=== PATIENT | male | born 1975 | race Caucasian/White ===

== ENCOUNTER 2023-12-29 08:04 | Emergency (ER) | payer OTHER, SELFPAY ==
--- NOTE | 2023-12-29 08:10 | ED.URI ---
HPI - URI/Sore Throat General Chief Complaint: Upper Respiratory Infection Stated Complaint: Sore Throat/Headache Source: patient, RN notes reviewed and old records reviewed Mode of arrival: ambulatory Limitations: no limitations History of Present Illness HPI Narrative: 48-year-old male who presents to [facility] with complaints of sore throat and headache since Thursday. Patient states he actually had migraine yesterday and did sumatriptan which did help his headache. Patient reports that he has a sore throat mainly on the left side of his throat with tenderness to the left side of his neck with some swelling of his gland noted. Patient admits to some sinus allergies and congestion with intermittent loss of voice, has been taking Claritin daily. Patient reports no fevers chills or sweats, denies any cough. MD elicited complaint: sore throat, nasal congestion and other (headache) Onset (ago): day(s) (5) Consistency: progressively worsening Severity: moderate Able to tolerate fluids by mouth: Yes Treatments prior to arrival: other (Claritin and migraine medication) Related Data Home Medications Medication Instructions Recorded Confirmed buspirone 15 mg tablet mg 12/29/23 clonazepam 2 mg tablet mg 12/29/23 esomeprazole magnesium 40 mg mg 12/29/23 capsule,delayed release lisinopril 20 mg tablet mg 12/29/23 loratadine 10 mg tablet mg 12/29/23 ondansetron HCl 4 mg tablet mg 12/29/23 sumatriptan succinate 50 mg tablet mg PO 12/29/23 Allergies Allergy/AdvReac Type Severity Reaction Status Date / Time No Known Allergies Allergy Unverified 05/26/14 14:19 Review of Systems Review of Systems: CONSTITUTIONAL: Reports malaise,no chills, sweats, or fever. EYES: Denies visual changes, redness, or discharge. ENT: Reports no rhinorrhea,states some congestion, sinus pain, no otalgia and positive for sore throat. CARDIOVASCULAR: Denies chest pain, palpitations, or edema. RESPIRATORY: Reports no cough.? Denies dyspnea. GASTROINTESTINAL: Denies abdominal pain, nausea, vomiting, diarrhea SKIN: Denies rash or itching. MUSCULOSKELETAL: Denies myalgia. NEUROLOGIC: Reports headache. All systems reviewed & are unremarkable except as noted in HPI and below PMFSH Past Medical History Medical History (Updated 04/23/24 @ 13:44 by Latonya Taylor NP) GERD (gastroesophageal reflux disease) Hypertension Migraine Social History Social History (Updated 12/29/23 @ 08:29 by Latonya Taylor NP) Smoking status: Former smoker Alcohol intake: former Alcohol use details: no alcohol for 2 months Substance use type: does not use Gender identity (if verbalized by the patient): Male Comments At time of signature, agree with nursing past medical, surgical, social and family history. There is no relevant family history pertinent to the presenting complaint Exam Narrative: GENERAL: Well-appearing, well-nourished, and in no acute distress. HEAD: Normocephalic EYES: PERRLA, conjunctivae clear ENT: Nares clear, turbinates edematous and erythematous, clear discharge. Mucous membranes moist. TM pearly gruber with dull light reflex bilaterally; no tragal tenderness. Oropharynx erythematous without lesions.Left Tonsil red and enlarged and without exudate, no drooling,positive for intermittent hoarseness, no trismus, uvula midline. NECK: Supple. Left lymphadenopathy CHEST: Clear to auscultation, breath sounds equal. No wheezing, rhonchi, rales, or stridor. No respiratory distress, speaks in full sentences.no cough noted,SAO2 100% on room air HEART: Regular rate and rhythm. No murmur heard. SKIN: Warm, dry, no rash. NEURO: Alert and oriented x3. PSYCH: Normal mood and affect Course Course Emergency Course: Patient is aware of diagnosis, understands and agrees to treatment plan.? Anticipatory guidance given.? Patient agrees to follow-up as directed and is aware of reasons to seek care at the
[2023-12-29 08:16] VITALS: BP 129/81; PULSE 85; RESP 14; TEMP 36.7; O2SAT 100
== END 2023-12-29 08:47 | disposition home or self-care (01) ==
PROVIDERS: Emergency Provider Registered Nurse
DX: J03.90 Acute tonsillitis, unspecified (principal); K21.9 Gastro-esophageal reflux disease without esophagitis; I10 Essential (primary) hypertension; Z87.891 Personal history of nicotine dependence
CPT/HCPCS: 87081; 87880; 99203; 99204; G0463

== ENCOUNTER 2025-05-31 08:10 | Emergency (ER) | payer OTHER, SELFPAY ==
[2025-05-31 08:17] VITALS: BP 108/71; PULSE 67; RESP 16; TEMP 36.8; O2SAT 100
--- OUTSIDE RECORDS SUMMARY | 2025-05-31 08:19 | XMS_ITS | Clinical Summary ---
Author Organization [facility] Address [address] [place] [address] Phone Care Team Providers Care Manager Print Name Role Phone Provider, None Primary Care Provider Unavailabl e Allergies No known active allergies Medications clonazePAM (KLONOPIN) 2 MG Tablet Take 2 mg by mouth 2 times daily. Active gabapentin (NEURONTIN) 300 MG Capsule Take 300 mg by mouth 3 times daily. Active busPIRone (BUSPAR) 15 MG Tablet Take 15 mg by mouth 3 times daily. Active Esomeprazole Magnesium (NEXIUM PO) Take 40 mg by mouth. Active Cholecalciferol (VITAMIN D3) 34952 units TabletIndicatio ns:Vitamin D deficiency Take 1 Tab by mouth once a week. 12 Tab 02/18/2019 Active prochlorperazin e (COMPAZINE) 5 MG Tablet Take 1-2 Tablets by mouth every 6 hours as needed for Nausea - 1st line. 10 Tablet 08/17/2024 Active Active Problems No known active problems Family History Medical History Relation Name Comments Diabetes Father Hypertension Father No Known Problems Mother Relation Name Status Comments Father Alive Mother Alive Social History Tobacco Use Types Packs/Day Years Used Date Smoking Tobacco: Former Smokeless Tobacco: Never Alcohol Use Standard Drinks/Week Comments Yes 0 (1 standard drink = 0.6 oz pur e alcohol) occasional PHQ-2 Answer Date Recorded PHQ-2 Score 0 05/20/2019 Sex and Gender Information Value Date Recorded Sex Assigned at Not on file Legal Sex Male 8:59 AM CDT Gender Identity Not on file Sexual Orientation Not on file Last Filed Vital Signs Vital Sign Reading Time Taken Comments Blood Pressure 100/67 08/17/2024 8:03 AM CLERICAL METHODS ANALYST Pulse 74 08/17/2024 8:03 AM CLERICAL METHODS ANALYST Temperature 35.9 C (96.6 F) 08/17/2024 6:31 AM CLERICAL METHODS ANALYST Respiratory Rate 14 08/17/2024 6:31 AM CLERICAL METHODS ANALYST Oxygen Saturation 96% 08/17/2024 8:03 AM CLERICAL METHODS ANALYST Inhaled Oxygen Concentration - - Weight 90.7 kg (200 lb) 08/17/2024 6:31 AM CLERICAL METHODS ANALYST Height 193 cm (6' 4) 08/17/2024 6:31 AM CLERICAL METHODS ANALYST Body Mass Index 24.34 08/17/2024 6:31 AM CLERICAL METHODS ANALYST Plan of Treatment Health Maintenance Due Date Last Done Comments Hepatitis C Virus (HCV) Screening 1977 TdaP Immunization 1977 Hepatitis B Immunization (1 of 3 - 19+ 3-dose series) 1996 Cologuard 2022 Colonoscopy 2022 Colorectal Cancer Screening 2022 Immunochemical Fecal Occult Blood 2022 Influenza Immunization (#1) 2025 SARS-COV-2 Immunization ( season) 2025 Respiratory Syncytial Virus (RSV) Immunization (Adult) (1 - 1-dose 75+ series) 2052 Human Papillomavirus (HPV) Immunization Aged Out No longer eligible b ased on patient's age to complete this topic Meningococcal Immunization (ACWY) Aged Out No longer eligible based on patient's age to complete this topic Pneumococcal Immunization Combined Aged Out No longer eligible based on patient's age to complete this topic Rotavirus Immunization Aged Out No lo nger eligible based on patient's age to complete this topic Insurance [employer] Care Teams Manager Print Relationship Specialty Start Date End Date Provider, None [place] PCP - General 03/17/22
--- NOTE | 2025-05-31 08:28 | ED.HA ---
HPI - Headache General Chief Complaint: Headache Stated Complaint: Headache/Vision Problem Time Seen by Provider: 05/31/25 08:28 Source: patient Mode of arrival: ambulatory Limitations: no limitations History of Present Illness HPI Narrative: 49 yo M with hx of migraines presents with c/o headache for 2 to 3 days. Taking Rizatriptan without relief. Denies N/V. Goes to ER for toradol IM when home medications not helping. Pt states use to take imitrex and PCP switched for some reason. States imitrex worked better. Pt is alert. Ambulatory with steady gait. Migraine pain not any worse than usual. All systems reviewed and negative except as noted above. Related Data Home Medications ?Medication ?Instructions ?Recorded ?Confirmed ?Last Taken ?Type buspirone 15 mg tablet mg 12/29/23 Unknown History esomeprazole magnesium 40 mg mg 12/29/23 Unknown History capsule,delayed release lisinopril 20 mg tablet mg 12/29/23 Unknown History loratadine 10 mg tablet mg 12/29/23 Unknown History ondansetron HCl 4 mg tablet mg 12/29/23 Unknown History Allergies Allergy/AdvReac Type Severity Reaction Status Date / Time No Known Allergies Allergy Verified 05/31/25 08:13 [facility] Past Medical History Medical History (Updated 05/31/25 @ 08:45 by Patricia Bueno NP) GERD (gastroesophageal reflux disease) Hypertension Migraine Social History Social History (Updated 12/29/23 @ 08:29 by Latonya Taylor NP) Smoking status: Former smoker Alcohol intake: former Alcohol use details: no alcohol for 2 months Substance use type: does not use Gender identity (if verbalized by the patient): Male Comments At time of signature, agree with nursing past medical, surgical, social and family history. There is no relevant family history pertinent to the presenting complaint. Exam Narrative: GENERAL: This is a well-nourished, well-developed patient, in no apparent distress. HEAD: normocephalic, atraumatic. EYES: PERRL. Sclera clear/white. Vision is grossly intact. Extraocular motions intact EARS: External ears normal, auditory canals clear and without drainage, TMs normal without perforation. Hearing grossly intact. NOSE: External nose normal with no obvious nasal discharge, nares without redness, no rhinorrhea. THROAT: Mucous membranes moist, posterior pharynx clear. NECK: Neck supple, non-tender without lymphadenopathy, masses or thyromegaly. CARDIOVASCULAR: Regular rate and rhythm without murmurs, gallops, or rubs. RESPIRATORY: Clear to auscultation. Breath sounds equal bilaterally. No wheezes, rales, or rhonchi. SKIN: warm, Dry, intact with no suspicious lesions or rash, good texture and turgor. NEURO: awake, alert, and oriented to person, place and time. There were no obvious focal neurologic abnormalities. EXTREMITIES: No joint tenderness, effusion, or edema noted. Course Course Level of Care: [facility] Visit Reevaluation(s) Reevaluation #1: pain improving after toradol IM. Vital Signs Vital signs: Vital Signs Temperature 36.8 C 05/31/25 08:17 Pulse Rate 67 05/31/25 08:17 Respiratory Rate 16 05/31/25 08:17 Blood Pressure 108/71 05/31/25 08:17 Pulse Oximetry 100 05/31/25 08:17 Oxygen Delivery Room Air 05/31/25 08:17 Temperature 36.8 C 05/31/25 08:17 Pulse Rate 67 05/31/25 08:17 Respiratory Rate 16 05/31/25 08:17 Blood Pressure 108/71 05/31/25 08:17 Pulse Oximetry 100 05/31/25 08:17 Oxygen Delivery Room Air 05/31/25 08:17 reviewed MDM - Headache MDM Narrative Medical decision making narrative: will stop rizatriptan and refill imitrex. pt given toradol at [facility] today and states pain improving. pt well appearing. no neuro deficits. Differential Diagnosis Differential diagnosis: Likely migraine, tension headache and headache Discharge Plan Discharge Clinical Impression: Migraine Patient Disposition: Home Condition: Stable Instructions: Migraine Headache (ED) Additional Instructions: Go home and rest in a dark quiet room. Drink at last 64 ounces of a water a day. Stop Rizatriptan and take Imitrex as prescribed. You were treated with toradol today. Do not take any additional NSAIDS(iburpfoen, naproxen, aleve) for 8 hours. Go to the ER for any worsening of symptoms. Patient Language: Omani Prescriptions: New sumatriptan succinate [Imitrex] 50 mg tablet See Rx Instructions .ROUTE .COMPLEX Qty: 30 0RF Rx Instructions: take 1 tab at onset of headache; if no relief may repeat 1 tab after at least 2 hrs; max = 4 tabs/24 hr No Action lisinopril 20 mg tablet ondansetron HCl 4 mg tablet esomeprazole magnesium 40 mg capsule,delayed release(DR/EC) loratadine 10 mg tablet buspirone 15 mg tablet Follow-up/Referrals: UNKNOWN,DOCTOR [Primary Care Provider] Stand Alone Forms: Work/School Release IP Time of Disposition: 08:45
[2025-05-31] MEDS: KETOROLAC (*BKC) 60 MG/2 ML VIAL IM (08:39)
[2025-05-31] MEDS: ONDANSETRON HCL ODT 4 MG TABLET SUBLINGUAL (08:39)
== END 2025-05-31 09:04 | disposition home or self-care (01) ==
PROVIDERS: Emergency Provider Nurse Practitioner Family
DX: G43.909 Migraine, unspecified, not intractable, without status migrainosus (principal); I10 Essential (primary) hypertension; K21.9 Gastro-esophageal reflux disease without esophagitis; Z87.891 Personal history of nicotine dependence
CPT/HCPCS: 96372; 99213; A9270; G0463; J1885

== ENCOUNTER 2025-07-05 08:25 | Emergency (ER) | payer OTHER, SELFPAY ==
[2025-07-05 08:27] VITALS: BP 132/90; PULSE 70; RESP 16; TEMP 36.4; O2SAT 100
--- OUTSIDE RECORDS SUMMARY | 2025-07-05 08:42 | XMS_ITS | Clinical Summary ---
Author Organization [facility] Address [address] [place] [address] Phone Care Team Providers Care Stitch Marker Name Role Phone Provider, None Primary Care [...] mg by mouth. Active Cholecalciferol (VITAMIN D3) 25037 units TabletIndicatio ns:Vitamin D deficiency Take 1 [...] Comments Blood Pressure 100/67 08/17/2024 8:03 AM SPA DIRECTOR/FINANCE Pulse 74 08/17/2024 8:03 AM SPA DIRECTOR/FINANCE Temperature 35.9 C (96.6 F) 08/17/2024 6:31 AM SPA DIRECTOR/FINANCE Respiratory Rate 14 08/17/2024 6:31 AM SPA DIRECTOR/FINANCE Oxygen Saturation 96% 08/17/2024 8:03 AM SPA DIRECTOR/FINANCE Inhaled Oxygen Concentration - - Weight 90.7 kg (200 lb) 08/17/2024 6:31 AM SPA DIRECTOR/FINANCE Height 193 cm (6' 4) 08/17/2024 6:31 AM SPA DIRECTOR/FINANCE Body Mass Index 24.34 08/17/2024 6:31 AM SPA DIRECTOR/FINANCE Plan of Treatment Health Maintenance Due Date [...] complete this topic Insurance [employer] Care Teams Stitch Marker Relationship Specialty Start Date End Date Provider, None [place] PCP - General 03/17/22
--- NOTE | 2025-07-05 08:49 | ED.HA ---
HPI - Headache General Chief Complaint: Headache Stated Complaint: Migraine Time Seen by Provider: 07/05/25 08:48 Mode of arrival: ambulatory Limitations: no limitations History of Present Illness HPI Narrative: 50-year-old male presents with concern for headache. Reports he has had a right-sided headache for about 4 days. He reports history of migraines. He has taken sumatriptan without much relief. Reports temporary relief. He reports mild nausea and light sensitivity. He denies vomiting. He denies head injury, vision changes, problems swallowing, problems speaking, weakness in any extremity MD elicited complaint: migraine Related Data Home Medications ?Medication ?Instructions ?Recorded ?Confirmed ?Last Taken ?Type buspirone 15 mg tablet mg 12/29/23 Unknown History esomeprazole magnesium 40 mg mg 12/29/23 Unknown History capsule,delayed release lisinopril 20 mg tablet mg 12/29/23 Unknown History loratadine 10 mg tablet mg 12/29/23 Unknown History propranolol 20 mg tablet mg 07/05/25 Unknown History Allergies Allergy/AdvReac Type Severity Reaction Status Date / Time No Known Allergies Allergy Verified 07/05/25 08:36 Review of Systems Review of Systems: CONSTITUTIONAL: Denies malaise, chills, sweats, or fever. EYES: Denies visual changes ENT: Denies rhinorrhea, congestion, sinus pain, otalgia or sore throat. CARDIOVASCULAR: Denies chest pain, palpitations, or edema. RESPIRATORY: Denies cough or dyspnea. GASTROINTESTINAL: Denies abdominal pain, vomiting. Reports nausea MUSCULOSKELETAL: Denies myalgia. NEUROLOGIC: Denies numbness, weakness. Reports headache. All systems reviewed & are unremarkable except as noted in HPI and below PMFSH Past Medical History Medical History (Updated 07/05/25 @ 09:04 by Julia Wynn APRN) GERD (gastroesophageal reflux disease) Hypertension Migraine Social History Social History (Updated 12/29/23 @ 08:29 by Latonya Taylor APRN) Smoking status: Former smoker Alcohol intake: former Alcohol use details: no alcohol for 2 months Substance use type: does not use Gender identity (if verbalized by the patient): Male Comments At time of signature, agree with nursing past medical, surgical, social and family history. There is no relevant family history pertinent to the presenting complaint Exam Narrative: GENERAL: Well-appearing, well-nourished, and in no acute distress. HEAD: Normocephalic, atraumatic. EYES: PERRLA, sclera clear, and EOMI. No nystagmus. ENT: Nares clear, no rhinorrhea or epistaxis. Mucous membranes moist. TM pearly gruber with sharp light reflex bilaterally; no tragal tenderness. Oropharynx without erythema or lesions. Tonsils not enlarged and without exudate. NECK: Supple. No lymphadenopathy. CHEST: No respiratory distress. Clear to auscultation. No bony deformities, no asymmetry. Speaks in full sentences. HEART: Regular rate and rhythm. No murmur heard. Normal peripheral pulses. ABDOMEN: Soft, nontender, nondistended, normal active bowel sounds, no palpable masses. EXTREMITIES: Normal range of motion. No edema. Normal strength and sensation. SKIN: Warm, dry, no visible rash. NEURO: Alert and oriented x3. No focal deficits. Cranial nerves II through XII grossly intact PSYCH: Normal mood and affect Course Course Emergency Course: Patient is aware of diagnosis, understands and agrees to treatment plan. Anticipatory guidance given. Patient agrees to follow-up as directed and is aware of reasons to seek care at the emergency department. Portions of this record may have been created with voice recognition software Level of Care: Express Care Visit Vital Signs Vital signs: Vital Signs Temperature 97.6 F 07/05/25 08:27 Pulse Rate 70 07/05/25 08:27 Respiratory Rate 16 07/05/25 08:27 Blood Pressure 132/90 07/05/25 08:27 Pulse Oximetry 100 07/05/25 08:27 Oxygen Delivery Room Air 07/05/25 08:27 Temperature 97.6 F 07/05/25 08:27 Pulse Rate 70 07/05/25 08:27 Respiratory Rate 16 07/05/25 08:27 Blood Pressure 132/90 07/05/25 08:27 Pulse Oximetry 100 07/05/25 08:27 Oxygen Delivery Room Air 07/05/25 08:27 Reviewed. MDM - Headache MDM Narrative Medical decision making narrative: I evaluated this patient in the express care. History is obtained from patient who is an independent historian and physical exam was performed.? Available medical records were reviewed. ? Exam findings and relevant testing show no acute concerns or changes; patient is non-toxic appearing and is in no distress. ? Differential diagnosis and treatment plan were discussed with the patient. Patient agrees with discussion and after shared medical decision making agrees with plan of care. All questions were answered to the patient's satisfaction. Patient is appropriate for outpatient treatment and follow-up. Critical Care Time Critical Care Time Critical Care Time: No Discharge Plan Discharge Clinical Impression: Migraine Patient Disposition: Home Condition: Stable Instructions: Migraine Headache (ED) Additional Instructions: 1) Please follow-up with your primary care doctor in the next 1-2 days. 2) If you have any worsening of symptoms or any other urgent concerns please go to the ER. 3) Please take medications as prescribed and continue taking your home medications as usual. 4) Please read and follow information included in discharge instructions. Patient Language: Argentine Prescriptions: New ketorolac 10 mg tablet 10 mg PO Q6H PRN (Reason: pain) 5 Days Qty: 20 0RF ondansetron 4 mg tablet,disintegrating 4 mg PO Q8H PRN (Reason: nausea and vomiting) Qty: 10 0RF No Action propranolol 20 mg tablet lisinopril 20 mg tablet esomeprazole magnesium 40 mg capsule,delayed release(DR/EC) loratadine 10 mg tablet buspirone 15 mg tablet sumatriptan succinate [Imitrex] 50 mg tablet See Rx Instructions .ROUTE .COMPLEX Qty: 30 0RF Rx Instructions: take 1 tab at onset of headache; if no relief may repeat 1 tab after at least 2 hrs; max = 4 tabs/24 hr Follow-up/Referrals: UNKNOWN,DOCTOR [Primary Care Provider] Time of Disposition: 09:05
[2025-07-05] MEDS: KETOROLAC (*BKC) 60 MG/2 ML VIAL IM (09:10)
== END 2025-07-05 09:30 | disposition home or self-care (01) ==
PROVIDERS: Emergency Provider Nurse Practitioner
DX: G43.909 Migraine, unspecified, not intractable, without status migrainosus (principal); I10 Essential (primary) hypertension; K21.9 Gastro-esophageal reflux disease without esophagitis; Z87.891 Personal history of nicotine dependence
CPT/HCPCS: 96372; 99213; G0463; J1885